=== PATIENT | female | born 1940 | race Hispanic/Latino ===

== ENCOUNTER 2018-07-12 11:36 | Day surgery (SDC) | payer MEDICARE ==
[~2018-07-12 11:36] MED LIST: AMLO5TAB7 PO; METF-444 PO; METO50TA18 PO; SODIUM CHLORIDE 0.9% 1000ML 1,000 ML IV ONE
[2018-07-12 11:48] VITALS: BP 115/73
[2018-07-12] MEDS ORDERED: PROPOFOL 10 MG/ML 20ML VIAL IV ONE ×2 (12:06)
[2018-07-12 12:25] VITALS: BP 120/63
[2018-07-12 12:36] VITALS: BP 127/67
[2018-07-12 12:40] VITALS: BP 131/74
[2018-07-12 12:46] VITALS: BP 138/70
== END 2018-07-12 13:21 | disposition home or self-care (01) ==
LOC: ENDO 11:36 → DAH 11:36 → ENDO 13:21
PROVIDERS: ATTEND Internal Medicine Gastroenterology
DX: K29.50 Unspecified chronic gastritis without bleeding (principal); I10 Essential (primary) hypertension; E11.9 Type 2 diabetes mellitus without complications; F15.90 Other stimulant use, unspecified, uncomplicated; Z79.1 Long term (current) use of non-steroidal anti-inflammatories (NSAID); Z79.899 Other long term (current) drug therapy; Z80.0 Family history of malignant neoplasm of digestive organs; Z82.49 Family history of ischemic heart disease and other diseases of the circulatory system; Z83.3 Family history of diabetes mellitus
CPT/HCPCS: 43239; 82948 ×2; 88305; 88342; 93005; A4606; J2704; J7030